=== PATIENT | female | born 1985 | race Caucasian/White ===

== ENCOUNTER 2023-07-09 21:38 | Emergency (ER) | payer OTHER ==
[~2023-07-09] VITALS: Ht 165.1 cm; Wt 86.0 kg
[2023-07-09 22:25] VITALS: BP 162/98; O2SAT 99
[2023-07-10] MEDS ORDERED: IBUP-2030 MT (02:20)
[2023-07-10 02:46] VITALS: PULSE 95; RESP 16; TEMP 98.2
== END 2023-07-10 02:45 | disposition home or self-care (01) ==
LOC: ER 21:38
DX: M25.562 Pain in left knee (principal)
CPT/HCPCS: 27550; 73562; 73590; 81025; 99284